=== PATIENT | male | born 1965 | race Caucasian/White ===

== ENCOUNTER 2018-06-18 12:25 | Inpatient (IN) | payer BC ==
[2018-06-18] MEDS ORDERED: Ticagrelor* 90 MG TAB PO ONE ×2 (12:36→12:37)
[2018-06-18] MEDS ORDERED: Heparin for STEMI(*) 5,000 UNITS/ML 1 ML VIAL IV ONE ×2 (12:36→12:37)
[2018-06-18] MEDS ORDERED: Nitroglycerin TAB 0.4 MG* 0.4 MG TAB ONE (12:36)
[2018-06-18] MEDS ORDERED: Aspirin 81 mg CHEW TAB* 81 MG TAB.CHEW ONE (12:36)
[2018-06-18] MEDS ORDERED: nitroGLYCERIN DRIP* 25,000 MCG/250 ML BTL ONE ×2 (12:36→12:53)
[2018-06-18] MEDS ORDERED: Aspirin 81 mg CHEW TAB* 81 MG TAB.CHEW PO ONE (12:37)
[2018-06-18] MEDS ORDERED: Nitroglycerin TAB 0.4 MG* 0.4 MG TAB SL ONE (12:37)
--- NOTE | 2018-06-18 12:39 | ED ---
HPI Chest Pain - HPI Summary HPI Summary: This patient is a 53 year old M presenting to [facility] accompanied by his with a chief complaint of chest pain that began at 1130 after he ate. The patient rates the pain 4/10 in severity and described as squeezing. Patient reports left arm pain. Patient denies n/v/d, diaphoresis, and dizziness. Pt has not taken ASA today. Hx of PR 6 years ago and has had 2 stents placed since. He is on Plavix. - History of Current Complaint Chief Complaint: EDChestPainROMI Time Seen by Provider: 06/18/18 12:38 Hx Obtained From: Patient Onset/Duration: Started Hours Ago, Still Present Time of Onset: 11:30 Timing: Constant Initial Severity: Moderate Current Severity: Moderate Pain Intensity: 4 Pain Scale Used: 0-10 Numeric Chest Pain Location: Diffuse Chest Pain Radiates: Yes Chest Pain Radiates To:: Arm - L Character: Pressure/Squeezing Associated Signs and Symptoms: Positive: Chest Pain. Negative: Dizziness, Diaphoresis, Nausea - Allergy/Home Medications Allergies/Adverse Reactions: Allergies Allergy/AdvReac Type Severity Reaction Status Date / Time acetaminophen [From Percocet] Allergy Mild Diaphoresis Verified 06/18/18 12:43 diphenhydramine Allergy Mild Nausea Verified 06/18/18 12:43 oxycodone [From Percocet] Allergy Mild Diaphoresis Verified 06/18/18 12:43 PMH/Surg Hx/FS Hx/Imm Hx Endocrine/Hematology History: Reports: Hx Blood Transfusions - pt states "I got sick from it" fever 2009 Denies: Hx Diabetes Cardiovascular History: Reports: Hx Angina, Hx Angioplasty, Hx Coronary Artery Disease, Hx Hypercholesterolemia, Hx Hypertension - Borderline Denies: Hx Myocardial Infarction, Hx Valvular Heart Disease Respiratory History: Reports: Hx Sleep Apnea Denies: Hx Asthma, Hx Chronic Obstructive Pulmonary Disease (COPD) GI History: Reports: Hx Gastroesophageal Reflux Disease Sensory History: Reports: Hx Contacts or Glasses Opthamlomology History: Reports: Hx Contacts or Glasses Psychiatric History: Reports: Hx Anxiety Denies: Hx Attention Deficit Hyperactivity Disorder, Hx Eating Disorder, Hx Depression, Hx Panic Disorder, Hx Post Traumatic Stress Disorder, Hx Inpatient Treatment, Hx Community Mental Health Tx, Hx Schizophrenia, Hx Bipolar Disorder , Hx Suicide Attempt, Hx of Violent Episodes Against Others, Hx Substance Abuse , Other Psychiatric Issues/Disorders - Surgical History Surgery Procedure, Year, and Place: Cardiac bypass 2009 [facility] Hx Anesthesia Reactions: No Infectious Disease History: Denies: Traveled Outside the [place] in Last 30 Days - Family History Known Family History: Positive: Cardiac Disease - Social History Alcohol Use: None Hx Substance Use: No Substance Use Type: Reports: None Hx Tobacco Use: Yes Smoking Status (MU): Current Every Day Smoker Type: Cigarettes Review of Systems Negative: Skin Diaphoresis Positive: Chest Pain Negative: Vomiting, Diarrhea, Nausea Positive: Other - left arm pain Neurological: Negative - dizziness All Other Systems Reviewed And Are Negative: Yes Physical Exam - Summary Physical Exam Summary: Appearance: Well appearing, no pain distress Skin: warm, dry, reflects adequate perfusion, scar chest Head/face: normal Eyes: EOMI, LALITHA ENT: normal Neck: supple, non-tender Respiratory: CTA, breath sounds present Cardiovascular: RRR, pulses symmetrical Abdomen: non-tender, soft Bowel: present Musculoskeletal: normal, strength/ROM intact Neuro: normal, sensory motor intact, A&Ox3 Triage Information Reviewed: Yes Vital Signs Reviewed: Yes Diagnostics - Laboratory Result Diagrams: 06/18/18 12:35 06/18/18 12:35 Lab Statement: Any lab studies that have been ordered have been reviewed, and results considered in the medical decision making process. - EKG 1231 Cardiac Rate: NL EKG Rhythm: Sinus Rhythm - at 89 BPM Summary of EKG Findings: inferior PR Chest Pain Course/Dx - Course Assessment/Plan: This patient is a 53 year old M presenting to [facility] accompanied by his with a chief complaint of chest pain that began at 1130 after he ate. The patient rates the pain 4/10 in severity and described as squeezing. Patient reports left arm pain. Patient denies n/v/d, diaphoresis, and dizziness. Pt has not taken ASA today. Hx of PR 6 years ago and has had 2 stents placed since. He is on Plavix. Pt is a current every day smoker. Pt was given ASA, NTG, heparin, and brilinta immediately after EKG was taken. He was also placed on NC O2. Blood work obtained. STEMI called at 1234. Dr Sharpe, cardiology was at bedside at 1238, he will take the patient to the veterinary laboratory technician. The patient is agreeable with this plan. - Chest Pain Differential Diagnosis/HQI/PQRI: Acute PR, ACS, Angina, Lower Respiratory Infection - Diagnoses Provider Diagnoses: Acute PR During the Visit The Following Alert/Code Occurred: STEMI - STEMI called at 1234 - Provider Notifications Discussed Care Of Patient With: Tri Sharpe Time Discussed With Above Provider: 12:38 Instructed by Provider To: Other - Dr Sharpe at bedside. He will take the patient to the veterinary laboratory technician - Critical Care Time Critical Care Time: 30-74 min Discharge - Sign-Out/Discharge Documenting (check all that apply): Patient Departure - admitted - Discharge Plan Condition: Fair Disposition: ADMITTED TO [facility] - Billing Disposition and Condition Condition: FAIR Disposition: Admitted to [facility] - Attestation Statements Document Initiated by Scribe: Yes Documenting Scribe: Korey Rinaldi Provider For Whom Alf is Documenting (Include Credential): Jabari Salmon MD Scribe Attestation: Korey Ruiz , scribed for Jabari Salmon MD on 06/18/18 at 1332. Scribe Documentation Reviewed: Yes Provider Attestation: The documentation as recorded by the Korey jeter accurately reflects the service I personally performed and the decisions made by Jabari lee MD
[2018-06-18 12:47] LABS: ABS Basophils 0.2 10^3/ul (0-0.2); ABS Eosinophils 0.2 10^3/ul (0-0.6); ABS Monocytes 0.9 10^3/ul (0-0.8); ABS Neutrophils 6.9 10^3/ul (1.5-7.7); ABS Nucleated RBC 0 10^3/ul; Eosinophil % 1.4 % (0-6); Hematocrit 46 % (42-52); Hemoglobin 16.1 g/dl (14.0-18.0); Lymphocyte % 32.8 % (25-47); Mean Corpuscular HGB Conc 35 g/dl (31-36); Mean Corpuscular Hemoglobin 32 pg (27-31); Mean Corpuscular Volume 92 fL (80-94); Mean Platelet Volume 7.5 fL (7.4-10.4); Nucleated Red Blood Cells % 0.1; Platelet Count 314 10^3/ul (150-450); Red Cell Distribution Width 13 % (10.5-15); White Blood Count 12.2 10^3/ul (3.5-10.8)
[2018-06-18] MEDS ORDERED: Metoprolol Tartrate IV* 1 MG/ML 5 ML VIAL ONE (12:51)
[2018-06-18] MEDS ORDERED: VERAPAMIL 2.5 MG/ML 2 ML VIAL ** 5 mg/2 ml ONE (12:53)
[2018-06-18] MEDS ORDERED: fentaNYL* 50 MCG/ML 2 ML VIAL (100 MCG VIAL) ONE ×3 (12:53→14:37)
[2018-06-18] MEDS ORDERED: Heparin(*) 1000 UNIT/ML 10 ML VIAL CATH LAB IV ONE (12:53)
[2018-06-18] MEDS ORDERED: Iohexol 350 (CONTRAST) 200 ML MDV IV ONE ×3 (12:53→12:57)
[2018-06-18] MEDS ORDERED: Lidocaine 1% INJ* 10 MG/ML 30 ML SDV ONE (12:53)
[2018-06-18] MEDS ORDERED: Midazolam* 1 MG/ML 10 ML VIAL (10 MG) ONE (12:53)
[2018-06-18] MEDS ORDERED: Heparin 2 UNITS/ML IVPREMIX* 3,000 ML IV ONE (12:53)
[2018-06-18 12:55] LABS: INR 0.91 (0.77-1.02)
[2018-06-18] MEDS ORDERED: Metoprolol Tartrate IV* 1 MG/ML 5 ML VIAL IV ONE (12:55)
[2018-06-18 13:04] LABS: EGFR Non-African American 79.7 (>60)
[2018-06-18] MEDS ORDERED: Nitroglycerin TAB 0.4 MG* 0.4 MG TAB SL PRN (15:18)
[2018-06-18] MEDS ORDERED: Acetaminophen TAB* 325 MG PO PRN (15:18)
[2018-06-18] MEDS ORDERED: NS 0.9% 1000 ML* 400 ML IV SCH (15:30)
[2018-06-18] MEDS: NF:Pitavastatin (NF) 2 MG TAB PO SCH (21:09)
[2018-06-18] MEDS ORDERED: Nicotine PATCH 7 MG/24 HR* PATCH ONE (21:14)
[2018-06-18] MEDS: Ticagrelor* 90 MG TAB PO SCH (21:16)
[2018-06-18] MEDS: Nicotine PATCH 7 MG/24 HR* PATCH TRANSDERM SCH (21:29)
--- NOTE | 2018-06-18 21:39 | HP ---
CC: Dr. Meade; Dr. Velasquez * HISTORY AND PHYSICAL: DATE OF ADMISSION: 06/18/18 PRIMARY CARE PHYSICIAN: Dr. Meade in [place]. PROJECT SCIENTIST: Dr. Velasquez. HISTORY OF PRESENT ILLNESS: A 53-year-old male with prior bypass grafting, presenting to the ER with acute inferior wall ST-elevation infarct. I reviewed his [employer] and his records, the office records. He underwent bypass grafting of the RCA with a vein graft in 2009 performed at [facility]. Apparently, he had right coronary disease, had intervention complicated by dissection, requiring emergent bypass grafting. The patient described to me that he had a tear in his aorta. We do not have any records of that episode. He then underwent catheterization here on 02/10/13 for a large ischemic burden on stress imaging, cath by Dr. Velasquez revealed normal LV systolic function with EF of 65%, 50% diagonal stenosis, 80% OM stenosis, and RCA occlusion with a patent vein graft to the RCA. He received a 2.75 x 20 drug-eluting stent in the mid circumflex. He was maintained on aspirin and Plavix, had no bleeding issues. This morning at around 0900, he developed chest pain, presented to the ER. EKG at 1231 hours revealed sinus rhythm with injury current in II, III and aVF, with reciprocal ST depression in I, aVL, V1 through V3. He was brought to the candlemaking laborer for emergent catheterization. He has a history of hyperlipidemia, lipid profile in October 2016 showed total cholesterol of 199, triglycerides 184, LDL 126, HDL 36.2. Prior hemoglobin A1c has ranged from 5.9 to 6.2. He is overweight and hypertensive, consistent with metabolic syndrome. He is intolerant of statins with difficulty with recall as well as muscle aching, he has tried Lipitor and Crestor. He has never been on Livalo. PAST MEDICAL HISTORY: Hypertension, hyperglycemia, hyperlipidemia, obstructive sleep apnea, depression, obesity, history of anxiety. PRE-HOSPITAL MEDICATIONS: 1. Prilosec 20 mg daily. 2. Nitroglycerin 0.4 sublingual p.r.n. 3. Multivitamins. 4. Imipramine 100 mg at bedtime. 5. Fish oil 1 g daily. 6. TriCor 160 mg daily. 7. Vitamin D. 8. Plavix 75 daily. 9. Atenolol 50 mg daily. 10. Aspirin 81 mg daily. ALLERGIES: Apparently to OXYCODONE and BENADRYL. He is intolerant of statins per history. FAMILY HISTORY: Positive for premature coronary disease. SOCIAL HISTORY: He is . He smokes half a pack per day. 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 REVIEW OF SYSTEMS: General: No weight loss. No fever. PROFESSIONAL BENEFITS SALES CONSULTANT: No history of TIA or CVA. GI: No history of peptic ulcer disease or bleeding. Circulatory: No claudication. Heme: No history of malignancy or anemia. Remainder all negative. PHYSICAL EXAMINATION GENERAL: He was in moderate distress, complaining of chest pain. VITAL SIGNS: BP 154/84; pulse 95, sinus rhythm. HEENT: Normal without xanthelasma, scleral injection, or jaundice. EOMs normal. Cranial nerves intact. NECK: JVP normal, carotids normal. No bruits. LUNGS: Clear to percussion and auscultation. ABDOMEN: Soft, nontender. No bruits. Aorta not palpable, liver edge not palpable. No masses. Femoral pulses 2+. No bruits. EXTREMITIES: Radial pulses 2+. Pedal pulses 2+. He has no cyanosis, clubbing , or edema. PSYCH: He is oriented and appropriate. SKIN: Warm and perfused. DIAGNOSTIC STUDIES/LAB DATA: EKG as above. CBC notable only for white count of 12.2000. BMP: Creatinine 0.99, random blood sugar 121, A1c 5.6. Lactate normal, CPK 295 with 5.6 MB, BNP normal, cholesterol 190, triglycerides 254, LDL 99, direct LDL 117, HDL 40.7. IMPRESSION: 1. Acute inferior wall ST-elevation infarct. He underwent emergent catheterization. Medical treatment in the ER included heparin, Brilinta 180 mg , sublingual nitroglycerin, Lopressor 5 mg IV. By the time he arrived in the candlemaking laborer, his chest pain had resolved. 2. Metabolic syndrome. 3. Hyperlipidemia with statin intolerance. We will attempt a trial of Livalo. He needs aggressive secondary risk factor modification given his young age and already having had bypass as well as a previous circumflex stent procedure. [id number]/[facility] #: [id number] MTDD
[2018-06-19 06:49] LABS: EGFR Non-African American 96.3 (>60)
[2018-06-19] MEDS: NF:Pitavastatin (NF) 2 MG TAB PO SCH (07:41)
[2018-06-19] MEDS: Aspirin 81 mg CHEW TAB* 81 MG TAB.CHEW PO SCH (09:19)
[2018-06-19] MEDS: Atenolol TAB* 50 MG PO SCH (09:19)
[2018-06-19] MEDS: Ticagrelor* 90 MG TAB PO SCH ×2 (09:19→21:28)
[2018-06-19] MEDS ORDERED: Nicotine Patch Removal NOTE PATCH OFF SCH (21:00)
[2018-06-19] MEDS: Nicotine PATCH 7 MG/24 HR* PATCH TRANSDERM SCH (21:28)
[2018-06-19] MEDS: Omeprazole CAP* 20 MG PO SCH (22:23)
[2018-06-20] MEDS: Omeprazole CAP* 20 MG PO SCH (07:45)
[2018-06-20] MEDS: NF:Pitavastatin (NF) 2 MG TAB PO SCH (08:49)
[2018-06-20] MEDS: Atenolol TAB* 50 MG PO SCH (08:50)
[2018-06-20] MEDS: Ticagrelor* 90 MG TAB PO SCH (08:50)
[2018-06-20] MEDS: Aspirin 81 mg CHEW TAB* 81 MG TAB.CHEW PO SCH (08:50)
[2018-06-20 12:48] VITALS: BP 131/80
--- NOTE | 2018-06-21 08:19 | DS ---
DISCHARGE SUMMARY: DATE OF ADMISSION: 06/18/18 DATE OF DISCHARGE: Tentative date of discharge 06/20/18, pending no complications. DICTATING FOR: Tri Sharpe MD* (DICTATED BY EDNA GARNER NP) ADMITTING DIAGNOSES: 1. Acute inferior ST elevation myocardial infarction. 2. History of coronary artery disease with prior bypass surgery. 3. History of hyperlipidemia. 4. History of hypertension. 5. History of obstructive sleep apnea. DISCHARGE DIAGNOSES: 1. Acute inferior STEMI, status post drug-eluting stents to posterolateral and mid circumflex with chronic occlusion of right coronary artery, LVEF was 55% on LV gram. CK-MB peaked at 19.1 on 06/19/18, on aspirin, Brilinta, statin, TriCor , and atenolol therapy. No recurrent complaints of chest pain since admission. 2. History of coronary artery disease, again on aspirin, statin, beta-blockade therapy. 3. History of hyperlipidemia, on statin and TriCor therapy. LDL was 99, goal is less than 70 given history of coronary artery disease. He was placed on pitavastatin therapy. He will need repeat lipid and LFTs in 6 weeks. Script placed in [facility]. We will continue TriCor therapy. History of Lipitor, simvastatin, and Crestor intolerance. 4. History of hypertension, on atenolol therapy. Blood pressure 121/73. HISTORY OF PRESENT ILLNESS: This is a pleasant 53-year-old gentleman, who is a patient of Dr. Velasquez of our practice, who presented to the emergency department on 06/18/18 after developing chest pain around 9 in the morning after eating. Chest pain was ongoing, subsequently he presented to the emergency department. EKG was performed, which revealed ST elevation with reciprocal changes in anterolateral leads, subsequently STEMI alert was called. Patient was taken urgently to the logging rafter laborer by Dr. Sharpe where he underwent LV gram that revealed an LVEF of 55%. He underwent successful drug-eluting stent placement to the mid circumflex and posterolateral branch. For further information, please refer to Dr. Sharpe' procedure report. Please note that he has COORDINATE MEASURING MACHINE PROGRAMMER of RCA SVG graft. Postprocedure, patient was admitted to the ICU. CK-MB peaked at 19.1 on 06/19/18. He had no recurrence of chest pain. He was loaded with Brilinta therapy in the emergency department. Plavix was discussed. He has been tolerating current medication regimen. Given LDL was 99, he was prescribed pitavastatin 2 mg p.o. daily and has been tolerating well. Historically, he has been intolerant to Lipitor, simvastatin, Crestor therapy. There have been no events on telemetry. He remains in normal sinus rhythm, rate 70s. He has been ambulating the halls without any issues and he is currently in [address] [place] [address] on telemetry service. Vital signs this morning, temperature 97.7, pulse 80, respirations 16, blood pressure 121/73. There is no morning blood work to review. Last BMP was 06/19/18, at that point in time, sodium was 138, potassium 4, chloride 108, carbon dioxide 23, BUN 9, creatinine 0.84, AST and ALT were within normal limits. Troponin was not trended. Again, LDL was 99, HDL 40.7, triglycerides 254, total cholesterol 190. This morning's EKG reveals normal sinus rhythm with anterolateral ST abnormalities consistent with prior EKGs since 06/18/18. ST elevation has normalized in inferior leads, rate 73. Patient is stable and desired to be discharged to home. DISCHARGE INSTRUCTIONS: No lifting more than 3 to 5 pounds for 5 to 7 days. Patient will be out of work until he sees transactional paralegal in followup. 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 He is to not drive for 7 days, this will be addressed in followup. In regards to right radial wrist wound care, he is instructed to not saturate the area and to seek medical evaluation if he develops pain, swelling, discoloration or coolness involving the right upper extremity. DISCHARGE DIET: Low cholesterol, low fat, cardiac diet. DISCHARGE MEDICATIONS: Include: 1. Aspirin 81 mg a day. 2. Brilinta 90 mg p.o. b.i.d. 3. Atenolol 50 mg p.o. daily. 4. Pitavastatin 2 mg p.o. daily. 5. Sublingual nitroglycerin 0.4 mg tablets q.5 minutes p.r.n. up to 3 doses. 6. Tylenol 650 mg p.o. q.4 h. p.r.n. 7. Nicotine transdermal patch 7 mg/24-hour daily. 8. Omeprazole 20 mg p.o. daily. Followup blood work, patient will need fasting lipid panel and liver function tests 08/03/18 given initiation of statin therapy. FOLLOWUP APPOINTMENTS: The patient is to see primary care provider in 7 to 10 days. We will arrange patient to follow up with Dr. Stoney Martinez within 7 days for wound check. He will then need to follow up Dr. Ron BENITEZ in 1-[address] Sharpe agrees the above assessment and plan. TIME SPENT: Total time for discharge less than 30 minutes. EDNA GARNER NP [id number]/[facility] #: [id number] GUSTAVO
--- NOTE | 2018-06-22 09:43 | CATH ---
CC: Dr. Meade; Dr. Velasquez STENT REPORT: DATE OF PROCEDURE: 06/18/18. PRIMARY CARE PHYSICIAN: Dr. Meade in [place]. INTERNATIONAL LOGISTICS MANAGER: Dr. Velasquez. PROCEDURES: Right radial artery access with ultrasound assistance, bilateral selective coronary tati ography, left heart catheterization, left ventriculography, stent placement, circumflex PL 2.5 x 12 S ynergy drug-eluting stent, mid circumflex 3 x 12 Synergy drug-eluting stent. HISTORY: A 53-year-old male with 1-vessel bypass to the RCA in 2009 at [facility] for di ssection of the RCA at the time of intervention. He had catheterization here 02/10/13, had normal LV function, 80% circumflex stenosis, 50% diagonal stenosis. He received 2.75 x 20 drug-eluting stent in the mid circumflex. The vein graft to the RCA was patent. The RCA [place] was described as occlude d. He now presents with an inferior ST elevation infarct. PROCEDURE ACCESS: Right radial artery sheath 6F slender. MEDICATIONS: 1. Subcu lidocaine. 2. IV Versed. 3. IV fentanyl. 4. Heparin 3000 units. 5. Verapamil 3 mg. 6. Nitroglycerin 300 mcg IA. 7. Heparin 2000 units, 3000 units IV. 8. IC nitroglycerin 200 mcg. Of note, he received a total of 6 mg of Versed, 250 mcg of IV fentanyl and still remained wide awake. He also complained of some tenderness in the right arm with catheter manipulation, catheter torque wa s somewhat decreased because of subclavian tortuosity. DIAGNOSTIC CATHETERS: 5F TIG4, 5FL4, 5FR4, 5F pigtail, 6FR4. GUIDING CATHETERS: Circumflex 6FL BU 3.5, wire 14 BMW. After diagnostic angiography, LV gram was performed in an effort to discern between the RCA vein biju t occlusion and the circumflex disease as the culprit. The patient was pain free by the time he arri varsha in the production laborer. There was a delay in [id number] time because of the uncertainty regarding the culprit lesion. After diagnostic angiography, I initially probed the saphenous vein graft proximal occlusion with a 1 4 BMW wire through the 6FR4 guide, there was no penetration of the proximal cap suggesting chronic to adams occlusion. Attention was therefore turned to the left circumflex. A 14 BMW wire was positioned in the posterolateral, which was stented with a 2.5 x 12 Synergy drug-eluting stent deployed at 11 at mospheres for 15 seconds, post dilated with a 2.5 x 12 NC balloon to 16 atmospheres for 30 seconds. The mid circumflex stenosis proximal to the prior stent was then stented with 3 x 12 Synergy drug-elu ting stent, post dilated with a 3 x 12 NC balloon to 16 atmospheres for 30 seconds. HEMODYNAMICS: LV pre-revascularization 107/19, no aortic valve gradient on pullback. ANGIOGRAPHY: Saphenous vein graft to RCA: It is occluded a few millimeters from the origin. There is a clear-cut proximal nub. Left main: The left main is normal in size and length, has minimal proximal taper. LAD: The LAD has moderate calcification, extends past the apex, it supplies a fairly small proximal diagonal branch which has luminal irregularity but no significant stenosis, the LAD extends past the apex. Circumflex: The circumflex is large, not dominant, has a previously placed mid stent which has no st enosis. The proximal circumflex has less than 30% stenosis. At the proximal end of the prior stent, there is a 60% fairly discrete stenosis. Distally, the circumflex supplies a small marginal and then 2 [id number] posterolaterals. The second one has mild ostial taper, then reconstitutes, then has a fairly discrete 95% stenosis with distal [place] 3 flow. There are LAD to distal right collateral s. There is filling of an acute marginal branch as well as the RPDA. The [place] RCA ostium is known to be occluded from prior study. LV gram: The inferior wall contracted normally suggesting that the vein graft to the RCA was not the culprit. Normal LVEF 55% with normal wall motion. After stent placement, circumflex PL and mid circumflex, high pressure post dilatation, he remained p ain free, there is [place] 3 flow, unchanged mild taper at the origin of the second posterolateral. CONCLUSION: 1. Two-vessel disease with chronic RCA occlusion, now with occluded vein graft to the RCA which is l ikely chronic. It was probed, no evidence of acute graft thrombosis. Wall motion inferiorly was nor mal. 2. Progression of disease mid circumflex as well as circumflex PL, good angiographic result with tammy g-eluting stent placement. He needs secondary risk factor modification, per history is intolerant of statins but will be tried on Livalo. 3. Normal LV systolic function. 4. Normal left-sided hemodynamics. 5. Successful right radial artery access. [id number]/[facility] #: [id number]
== END 2018-06-20 13:00 | disposition home or self-care (01) | DRG 174 ==
LOC: ED 12:25 → CHICATH 12:41 → ICU 15:19 → MEDTELE 06-19 13:24
PROVIDERS: ADMIT Internal Medicine Cardiovascular Disease; ATTEND Internal Medicine Cardiovascular Disease
PROC: B2111ZZ Fluoroscopy of Multiple Coronary Arteries using Low Osmolar Contrast (ICD-10-PCS; 2018-06-18)
PROC: B2151ZZ Fluoroscopy of Left Heart using Low Osmolar Contrast (ICD-10-PCS; 2018-06-18)
PROC: 027135Z Dilation of Coronary Artery, Two Arteries with Two Drug-eluting Intraluminal Devices, Percutaneous Approach (ICD-10-PCS; 2018-06-18)
PROC: 4A023N7 Measurement of Cardiac Sampling and Pressure, Left Heart, Percutaneous Approach (ICD-10-PCS; principal; 2018-06-18 13:00)
DX: I21.19 ST elevation (STEMI) myocardial infarction involving other coronary artery of inferior wall (principal); I25.10 Atherosclerotic heart disease of native coronary artery without angina pectoris; I10 Essential (primary) hypertension; K21.9 Gastro-esophageal reflux disease without esophagitis; F41.9 Anxiety disorder, unspecified; F17.210 Nicotine dependence, cigarettes, uncomplicated; E78.5 Hyperlipidemia, unspecified; E88.81 Metabolic syndrome and other insulin resistance; G47.33 Obstructive sleep apnea (adult) (pediatric); I25.82 Chronic total occlusion of coronary artery; F32.9 Major depressive disorder, single episode, unspecified; E66.9 Obesity, unspecified; I25.2 Old myocardial infarction; Z68.33 Body mass index [BMI] 33.0-33.9, adult; Z95.5 Presence of coronary angioplasty implant and graft; Z79.02 Long term (current) use of antithrombotics/antiplatelets; Z88.5 Allergy status to narcotic agent; Z88.8 Allergy status to other drugs, medicaments and biological substances; Z82.49 Family history of ischemic heart disease and other diseases of the circulatory system; Z95.1 Presence of aortocoronary bypass graft; Z79.899 Other long term (current) drug therapy; Z79.82 Long term (current) use of aspirin
CPT/HCPCS: 36415; 80048; 80053; 80061; 82550; 82553; 83036; 83605; 83721; 83880; 84484; 85025; 85347; 85610; 85730; 87641; 93005; 99156; 99157; 99285; 99406; A9270-GY; C1725; C1769; C1876; C1887; C9606-LC; J1644; J2250; J3010; J3490

== ENCOUNTER 2021-12-29 12:59 | Observation (INO) ==
[2021-12-29 13:21] LABS: ABS Basophils 0.1 10^3/ul (0-0.2); ABS Eosinophils 0.2 10^3/ul (0-0.6); ABS Lymphocytes 3.7 10^3/ul (1.0-4.8); ABS Monocytes 0.6 10^3/ul (0-0.8); ABS Neutrophils 4.8 10^3/ul (1.5-7.7); Eosinophil % 1.9 %; Hematocrit 42 % (42-52); Hemoglobin 14.3 g/dL (14.0-18.0); Lymphocyte % 39.6 %; Mean Corpuscular HGB Conc 34 g/dL (31-36); Mean Corpuscular Hemoglobin 32 pg (27-31); Mean Corpuscular Volume 92 fL (80-94); Mean Platelet Volume 8.1 fL (7.4-10.4); Nucleated Red Blood Cells % 0.1; Platelet Count 280 10^3/uL (150-450); Red Blood Count 4.53 10^6 /uL (4.18-5.48); Red Cell Distribution Width 13 % (10-15); White Blood Count 9.3 10^3/uL (3.5-10.8)
[2021-12-29 13:27] LABS: INR 1.04 (0.86-1.15)
[2021-12-29 14:21] LABS: Activated Partial Thrombo Time 33.8 seconds (26.0-38.0)
[2021-12-29 14:27] LABS: Albumin 4.4 g/dL (3.2-5.2); Albumin/Globulin Ratio 2.3 (1-3); Calcium 9.4 mg/dL (8.6-10.3); Globulin 1.9 g/dL (2-4); Potassium 3.8 mmol/L (3.5-5.0); Total Bilirubin 0.5 mg/dL (0.2-1.0); Total Protein 6.3 g/dL (6.4-8.9); eGFR CKD-EPI 71.9 (>60)
[2021-12-29 15:01] LABS: High Sensitivity Troponin 1 Hr 4 pg/mL (<20)
[2021-12-29] MEDS ORDERED: Nicotine Lozenge mini 4 MG LOZNG.MINI MT PRN (16:53)
[2021-12-29] MEDS: Enoxaparin 40 MG/0.4 ML SYR SUBCUT SCH (17:28)
[2021-12-29] MEDS ORDERED: [UNRECOGNIZED DRUG - REMARK] PATCH OFF SCH (21:00)
[2021-12-29] MEDS: CMC:Ticagrelor 60 mg TAB (NF) PO SCH (22:28)
[2021-12-30 05:52] LABS: ABS Basophils 0.1 10^3/ul (0-0.2); ABS Eosinophils 0.2 10^3/ul (0-0.6); ABS Lymphocytes 3.5 10^3/ul (1.0-4.8); ABS Monocytes 0.7 10^3/ul (0-0.8); ABS Neutrophils 3.7 10^3/ul (1.5-7.7); Eosinophil % 2.7 %; Hematocrit 41 % (42-52); Lymphocyte % 42.8 %; Mean Corpuscular HGB Conc 34 g/dL (31-36); Mean Corpuscular Hemoglobin 32 pg (27-31); Mean Corpuscular Volume 94 fL (80-94); Mean Platelet Volume 8.4 fL (7.4-10.4); Platelet Count 288 10^3/uL (150-450); Red Blood Count 4.39 10^6 /uL (4.18-5.48); Red Cell Distribution Width 14 % (10-15); White Blood Count 8.2 10^3/uL (3.5-10.8)
[2021-12-30 06:11] LABS: Blood Urea Nitrogen 14 mg/dL (6-24); CO2 Carbon Dioxide 29 mmol/L (22-32); Calcium 9.2 mg/dL (8.6-10.3); Chloride 107 mmol/L (101-111); Glucose 100 mg/dL (70-100); Potassium 4.3 mmol/L (3.5-5.0); Sodium 136 mmol/L (135-145); eGFR CKD-EPI 69.8 (>60)
[2021-12-30] MEDS ORDERED: Perflutren Lipid Microsphere 3 ML VIAL ONE (07:51)
[2021-12-30] MEDS ORDERED: Nicotine PATCH 14 MG/24 HR PATCH TRANSDERM SCH (09:00)
[2021-12-30] MEDS: CMC:OMEGA-3 FATTY ACID 1000 mg(NF) PO SCH (10:17)
[2021-12-30] MEDS: IMIPRAMINE 25 MG PO SCH ×3 (10:17→20:22)
[2021-12-30] MEDS: Fluticasone NASAL SPRAY 50MCG 16 gm SPRAY BTL INTRANASAL SCH (10:18)
[2021-12-30] MEDS: Multivitamins/Minerals TAB PO SCH (10:18)
[2021-12-30] MEDS: Nicotine PATCH 14 MG/24 HR PATCH TRANSDERM SCH (10:18)
[2021-12-30] MEDS: CMC:Ticagrelor 60 mg TAB (NF) PO SCH ×2 (10:25→19:41)
[2021-12-30] MEDS: Nicotine GUM 4MG FRUIT FLAVOR PO PRN ×2 (15:12→21:13)
[2021-12-30] MEDS: Isosorbide Mononit ER 30mg TAB PO SCH (16:38)
[2021-12-30] MEDS: Enoxaparin 40 MG/0.4 ML SYR SUBCUT SCH (16:38)
[2021-12-30] MEDS ORDERED: Pitavastatin 2 mg TAB (NF) PO SCH (17:00)
[2021-12-30] MEDS ORDERED: Calcium Carb (TUMS) 500 mg CHEW TAB PO PRN (19:40)
[2021-12-30] MEDS ORDERED: Senna TAB 8.6 mg TAB PO PRN (20:30)
[2021-12-30] MEDS ORDERED: Simethicone SUSP ORALSYR 66.66 MG/ML PO PRN (20:30)
[2021-12-30] MEDS ORDERED: Magnesium Hydroxide LIQ 30 ML UDC PO PRN (20:30)
[2021-12-31 05:47] LABS: Hematocrit 40 % (42-52); Hemoglobin 13.4 g/dL (14.0-18.0); Mean Corpuscular HGB Conc 34 g/dL (31-36); Mean Corpuscular Hemoglobin 31 pg (27-31); Mean Corpuscular Volume 93 fL (80-94); Mean Platelet Volume 8.4 fL (7.4-10.4); Platelet Count 250 10^3/uL (150-450); Red Blood Count 4.28 10^6 /uL (4.18-5.48); Red Cell Distribution Width 13 % (10-15); White Blood Count 11.8 10^3/uL (3.5-10.8)
[2021-12-31 06:21] LABS: Calcium 9.2 mg/dL (8.6-10.3); Potassium 4.2 mmol/L (3.5-5.0); eGFR CKD-EPI 76.4 (>60)
[2021-12-31] MEDS ORDERED: Lidocaine 1% MPF 5 ML VIAL ONE (08:14)
[2021-12-31] MEDS ORDERED: Midazolam 5 mg/5 ml VIAL 1 mg/ml 5 ml VIAL (5 mg) ONE (08:14)
[2021-12-31] MEDS ORDERED: Heparin 2 UNITS/ML 1000 mls 2,000 ML IV ONE (08:14)
[2021-12-31] MEDS ORDERED: fentaNYL 100 mcg/2 ml 50 MCG/ML VIAL ONE (08:14)
[2021-12-31] MEDS ORDERED: Iohexol 350 (CONTRAST) 50 ML SDV IV ONE (08:14)
[2021-12-31] MEDS ORDERED: nitroGLYCERIN DRIP 25,000 MCG/250 ML BTL ONE (08:14)
[2021-12-31] MEDS ORDERED: VERAPAMIL 2.5 MG/ML 2 ML VIAL ** 5 mg/2 ml ONE (08:14)
[2021-12-31] MEDS ORDERED: Heparin 1,000 UNIT/ML 10 ml (10,000 UNITS) CATHLAB/DIALYSIS ONE (08:14)
[2021-12-31] MEDS ORDERED: Iohexol 350 (CONTRAST) 200 ML MDV IV ONE (08:15)
[2021-12-31] MEDS: Isosorbide Mononit ER 30mg TAB PO SCH (10:03)
[2021-12-31] MEDS: CMC:OMEGA-3 FATTY ACID 1000 mg(NF) PO SCH (12:13)
[2021-12-31] MEDS: Nicotine PATCH 14 MG/24 HR PATCH TRANSDERM SCH (12:13)
[2021-12-31] MEDS: Fluticasone NASAL SPRAY 50MCG 16 gm SPRAY BTL INTRANASAL SCH ×2 (12:13→12:18)
[2021-12-31] MEDS: CMC:Ticagrelor 60 mg TAB (NF) PO SCH (12:14)
[2021-12-31] MEDS: Multivitamins/Minerals TAB PO SCH (12:18)
[2021-12-31] MEDS: IMIPRAMINE 25 MG PO SCH (12:18)
[2021-12-31 12:28] VITALS: BP 109/55
== END 2021-12-31 13:12 | disposition home or self-care (01) ==
LOC: ED 12:59 → EDHOLD 12:59 → MEDTELE 20:29
PROVIDERS: ADMIT Internal Medicine; ATTEND Internal Medicine